=== PATIENT | female | born 1985 | race Caucasian/White ===

== ENCOUNTER 2024-10-04 09:15 | Outpatient (AMB) | payer OTHER, SELFPAY ==
[2024-10-04 09:21] VITALS: BP 113/75; PULSE 88; RESP 16; TEMP 36.6; O2SAT 98; BMI 24.1
--- NOTE | 2024-10-04 09:21 | AMB.GYNCLNOT ---
Vital Signs 10/04/24 09:21 Height 1.65 m Height Method Stated Weight 65.884 kg Weight Measurement Method Standing Scale BMI 24.1 BP 113/75 Blood Pressure Source Automatic Cuff Blood Pressure Location Left Upper Arm Position Sitting Respiration 16 Pulse 88 Pulse Source Monitor Temp 97.8 F Temp Source Oral Pulse Oximetry (%) 98 Oxygen Delivery Method Room Air Allergies/Home Meds Allergies & Medications Allergies Penicillins Allergy (Intermediate, Verified 10/04/24 09:23) Rash Medication Reconciliation No Known Home Medications 10/04/24 [History Confirmed 10/04/24] Intake Visit Data Collection New Patient or Established: Established Patient (seen at [facility] within 3 years) Reason for Visit:: Breast pain, bilateral breast lumps Consent obtained for Telemed Visit: No Seen by Clinical Staff ONLY (RN/MA): No Landscape Architect And Planner Required: No Do You Feel Safe at Home: Yes Authorities Contacted: N/A PCP or OBGYN visit in last 3 months: No Date of Last PCP or OBGYN visit: 10/20/23 Hx Now: No Are you currently on any form of Control: No Pain Present Currently: Yes Pain Location: Breast (Pain left breast, left axillary region. Lump left breast. 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 1. Little interest or pleasure in doing things: not at all 2. Feeling down, depressed, or hopeless: not at all Total score: 0 PHQ-9 3. Trouble falling or staying asleep, or sleeping too much: Not at all 4. Feeling tired or having little energy: Not at all 5. Poor appetite or overeating: Not at all 6. Feeling bad about yourself - or that you are a failure or have let yourself or your family down: Not at all 7. Trouble concentrating on things, such as reading the newspaper or watching television: Not at all 8. Moving or speaking so slowly that other people could have noticed? - Or the opposite - being so fidgety or restless that you have been moving around a lot more than usual: not at all 9. Thoughts that you would be better off or of hurting yourself in some way: Not at all Total score: 0 If you checked off any problems, how difficult have these problems made it for you to do your work, take care of things at home, or get along with other people?: not difficult at all Source: Developed by Drs. Jose Tucker, Shante Whittington, Harinder Herrera and colleagues, with an educational shoshana from [employer]. Depression screen completed yes Social History Living Situation History Marital Status: Lives With: Family Housing: House Housing Other:: Patient employed at a school. Tobacco History Smoking Status: Never smoker Alcohol History Alcohol Intake: Never Domestic Abuse History Do You Feel Safe at Home: Yes Past Medical History Past Medical History Have you ever been diagnosed with any of the following: Neurological Problems Guillain-[place] Syndrome: No Migraine: No Cardiology Problems Cardiac Arrhythmia: No Heart Murmur: No Hypercholesterolemia: No Rheumatic Fever: No Deep Vein Thrombosis: No Hypertension: No Respiratory Problems Asthma: No Pulmonary Embolism: No Sleep Apnea: No Smoking: No Stomache/Intestinal Problems Gall Bladder Disease: No Colitis: No Ulcerative Colitis: No Irritable Bowel: No Gastroesophageal Reflux Disease: No Obesity: No Genital/Urinary Problems Kidney Stones: No Reproductive Problems Breast Cancer: No (Paternal grandmother with breast cancer in her 50s, father with prostate CA) Endometriosis: No Fibroids: No Genital Herpes: No Gonorrhea: No Pelvic Inflammatory Disease: No Polycystic Ovarian Syndrome: No Previous Pregnancies: Yes ( x 4 in the past) Syphilis: No Uterine Prolapse: No Musculoskeletal Problems Arthritis: No Rheumatoid Arthritis: No Carpal Tunnel Syndrome: No Fibromyalgia: No Endocrine Problems Diabetes Mellitus Type 2: No Hyperthyroidism: No Hypothyroidism: No Thyroid Cancer: No Blood Problems Anemia: No Clotting Problems: No Psychologic Problems Depression: No Anxiety: No Attention Deficit Disorder: No Other Problems Hospitalization: Yes (For vaginal delivery x 4) Autoimmune Disease: No Cosmetic Surgery: Yes (Breast implants) Blood Transfusions: No Anesthesia Reactions: No Surgical History Appendectomy: No Bariatric Surgery: No Breast Surgery: Yes (Right breast biopsy in 2013 in [place] for fibroadenoma left breast biopsy 2023 ) Cholecystectomy: No Hysterectomy: No History of Present Illness HPI Narrative The patient is a very pleasant 39-year-old -0-0-4 who used to see me in [place]. She has a history of vaginal delivery x 4 in the past. Her oldest daughter is in eighth grade and her youngest daughter is in second grade. She has a total of 4 children 3 girls and 1 boy. Her youngest daughter Alex has Down syndrome. She is in second grade. Her son is in fourth grade and has AD HD. Patient is concerned as she has a history of breast lumps and has had biopsy x 2 in the past she has an appointment coming up with Dr. Person in [place] next Wednesday. Patient would like a mammogram and ultrasound performed so she can bring the films to Dr. Person's office. 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 Person last summer in 2023 that again revealed a fibroadenoma. Patient does have breast implants in place. She denies any nipple discharge any lymphadenopathy. She states her left breast hurts especially at 12:[address] to her axillary region the right breast has a mobile pea shaped lump on it that she is concerned about. Review of Systems Constitutional Constitutional: Reports system reviewed and no additional complaints, except as documented Comments: Patient denies any weight loss any nausea vomiting. She only reports breast lumps and pain as above. Exam General Limitations: no limitations General Appearance: alert, in no apparent distress, cooperative, healthy appearing and well groomed Head Head exam: atraumatic, normocephalic and normal inspection Neck Neck exam: Present normal inspection, full ROM and trachea midline Chest Chest inspection: Present normal inspection and symmetric chest wall rise Exp Chest Breast: left: tenderness (Left breast tender at 12:00 with a mobile cyst present) and bilateral: mass (Cystic mass at 12:00 left breast small cyst right nipple 12:00) and other (Bilateral breast implants in place) Resp Respiratory exam: Present normal lung sounds bilaterally Card Cardiovascular exam: Present regular rate, normal rhythm and normal heart sounds Abdominal Abdominal exam: Present soft and normal bowel sounds Psych Psychiatric exam: Present normal affect and normal mood Skin Skin exam: Present warm, dry, intact and normal color Assessment & Plan Diagnosis / Problem List (1) Breast pain: Status: Acute (2) Breast lump on left side at 1 o'clock position: Status: Acute (3) Breast lump on right side at 12 o'clock position: Status: Acute (4) History of bilateral breast implants: Status: Acute Plan Bilateral STAT diagnostic mammogram ordered and bilateral stat breast ultrasound ordered. Patient has an appointment with Dr. Naina Person in [place] October 09. Plan to bring her films with her to this appointment. Additional Plan Follow Up: 4 Weeks (For annual exam/pap) Office Procedures OB Clinic LOC & Office Proc's Nursing/Assessment Patient Status: Established Patient OB Clinic Nursing Assessment: BP Monitoring, Medication Reconciliation, Update PMH in EMR and Vital Signs OB Clinic Coordination of Care: Consent,records obtained, informed consent, Education Simp Pt/Fam, Lab and Imaging orders and Staff clarify orders Established Patient Charge Established Patient Point Assignment: 90 Established Patient Point Charge: EP Level 3 (80-115)
== END 2024-10-04 10:24 | disposition home or self-care (01) ==
PROVIDERS: PCP Obstetrics & Gynecology; Supervising Provider Obstetrics & Gynecology; Visit Provider Obstetrics & Gynecology
DX: N64.4 Mastodynia (principal); N63.21 Unspecified lump in the left breast, upper outer quadrant; N63.15 Unspecified lump in the right breast, overlapping quadrants; Z98.82 Breast implant status
CPT/HCPCS: 99213; G0463

== ENCOUNTER → 2024-10-04 | Outpatient (CLI) | payer OTHER, SELFPAY ==
--- NOTE | 2024-10-04 10:29 | XR_ITS ---
Examination: Breast ultrasound complete, bilateral Date and time of exam: October 04, 2024 1042 hours INDICATIONS: Outside breast examination history left breast biopsy 12:00 nodule, 12:00 nodule 14 mm on breast sonogram December 07, 2023, right breast retroareolar nodule on ultrasound November 01, 2023, 12 mm Technique: Real-time grayscale ultrasonographic imaging bilateral breasts, including all 4 quadrants as well as nipple retroareolar and axillary regions. Findings: Sonographic images right breast Retroareolar oval mass 10 x 10 mm circumscribed Sonographic images left breast 12:00 oval mass lobular margins 15 x 15 mm with breast biopsy marker IMPRESSION: BI-RADS Category 3: Probably benign findings Mild enlargement 12:00 nodule left breast, recommend repeat left breast sonography in 6 months
--- NOTE | 2024-10-04 10:31 | XR_ITS ---
Examination: Diagnostic digital mammography, bilateral Computer aided detection 3-D breast Tomosynthesis, bilateral Date and time of exam: October 04, 2024 1105 hours INDICATIONS: Mammogram November 01, 2023 14 mm nodule multiple lobular margins 3:00 position left breast, biopsied February 2024, patient states left breast pain a few days Technique: Nonmagnified MLO, CC views of the breasts to been obtained, reconstructed from 3-D Tomosynthesis images. R2 computer aided detection program utilized for evaluation of suspicious masses and/or abnormal calcifications. 3-D Tomosynthesis images obtained. Findings: The breasts are heterogeneously dense, which may obscure small masses 12:00 nodule left breast lobular margins Impression: BI-RADS Category 0: Incomplete: Need additional imaging evaluation This patient should return for dedicated left breast sonography 12:00 position with the radiologist in attendance to assess the nodule with lobular margins on the current mammogram 12:00 position.
== END | disposition home or self-care (01) ==
LOC: CDIM 10:19
PROVIDERS: PCP Obstetrics & Gynecology; Referring Provider Obstetrics & Gynecology; Visit Provider Obstetrics & Gynecology
DX: R92.8 Other abnormal and inconclusive findings on diagnostic imaging of breast (principal); N63.25 Unspecified lump in the left breast, overlapping quadrants
CPT/HCPCS: 76641; 77062; 77066; G0279

== ENCOUNTER → 2025-05-18 | Outpatient (CLI) | payer OTHER, SELFPAY ==
--- NOTE | 2025-05-18 14:30 | XR_ITS ---
Examination: Breast ultrasound complete, bilateral Date and time of exam: May 18, 2025, 1453 hours INDICATIONS: 12:00 nodule left breast 10 x 10 mm on ultrasound October 04, 2024 Technique: Real-time grayscale ultrasonographic imaging bilateral breasts, including all 4 quadrants as well as nipple retroareolar and axillary regions. Findings: Sonographic images right breast Retroareolar nodule circumscribed 10 x 10 mm Sonographic images left breast 12:00 nodule 13 x 10 mm lobular margins IMPRESSION: BI-RADS Category 3: Probably benign findings Recommend continued 6 month bilateral breast sonography follow-up to document stability of nodules described above
== END | disposition home or self-care (01) ==
LOC: CDIM 14:23
PROVIDERS: Referring Provider Student in an Organized Health Care Education/Training Program; Visit Provider Student in an Organized Health Care Education/Training Program
DX: N63.41 Unspecified lump in right breast, subareolar (principal); N63.25 Unspecified lump in the left breast, overlapping quadrants
CPT/HCPCS: 76641